=== PATIENT | female | born 1990 | race American Indian/Alaskan Native ===

== ENCOUNTER 2018-07-03 15:03 | Outpatient (CLI) | payer MEDICAID | END 2018-07-03 18:37 | disposition home or self-care (01) | LOC: TRG 15:03 | CPT/HCPCS: 59025 ==

== ENCOUNTER 2018-07-15 08:37 | Inpatient (IN) | payer MEDICAID ==
[2018-07-15 09:49] LABS: Hematocrit 33.6 % (30.3-42.9); Hemoglobin 11.2 gm/dl (10.1-14.3); Mean Corpuscular HGB Conc 33 % (30-34); Mean Corpuscular Volume 90 fl (79-97); Platelet Count 202 K/mm3 (140-440); Red Blood Count 3.75 M/mm3 (3.65-5.03); Red Cell Distribution Width 15.5 % (13.2-15.2)
[2018-07-15] MEDS ORDERED: PITOCin/NS 30 UNIT/500ML 30 UNITS/500 ML BAG IV SCH ×2 (10:00)
[2018-07-15] MEDS ORDERED: LACTATED RINGERS 1,000 ML IV SCH (10:00)
[2018-07-15] MEDS ORDERED: PITOCin/NS 20 UNIT/1000ML DRIP 20 UNITS/1,000 ML BAG IV SCH (10:00)
[2018-07-15] MEDS ORDERED: MINERAL OIL PO PRN (10:00)
[2018-07-15] MEDS ORDERED: XYLOCAINE 2% INFILTRATI NR (10:00)
[2018-07-15] MEDS ORDERED: BRETHINE SUB-Q PRN (10:30)
[2018-07-15] MEDS ORDERED: BRETHINE IVP PRN (10:30)
--- NOTE | 2018-07-15 11:00 | Ultrasound Report ---
ULTRASOUND OB LIMITED History: Confirm position Technique: Transabdominal ultrasound with Doppler interrogation. Gestation: Single Position: Cephalic Heart Rate: 146 BPM
[2018-07-15] MEDS ORDERED: AMPICILLIN/NS 2 GM/100 ML 2 GM/100 ML BAG IV ONE (12:56)
[2018-07-15] MEDS: AMPICILLIN/NS 1 GM/50 ML 1 GM/50 ML BAG IV SCH (17:57)
[2018-07-15] MEDS ORDERED: NARCAN 2 MG/2 ML IV PRN (18:13)
--- NOTE | 2018-07-15 18:15 | Anesthesia Day of Surgery ---
Anesthesia Day of Surgery - Day of Surgery Patient Examined: Yes Patient H&P Reviewed: Yes Patient is NPO: Yes Beta Blockers: No Cardiac Clearance: No Pulmonary Clearance: No Luis Felipe's Test: N/A
--- NOTE | 2018-07-15 18:15 | Anesthesia Consultation ---
Anesthesia Consult and Med Hx - Airway Anesthetic Teeth Evaluation: Good ROM Head & Neck: Adequate Mental/Hyoid Distance: Adequate Mallampati Class: Class I Intubation Access Assessment: Good - Pulmonary Exam CTA: Yes - Cardiac Exam Cardiac Exam: RRR - Pre-Operative Health Status ASA Pre-Surgery Classification: ASA2 Proposed Anesthetic Plan: Epidural - Pulmonary Hx Asthma: No - Cardiovascular System Hx Hypertension: No - Central Nervous System Hx Seizures: No Hx Psychiatric Problems: No - Endocrine Hx Renal Disease: No Hx Hypothyroidism: No Hx Hyperthyroidism: No - Hematic Hx Anemia: No Hx Sickle Cell Disease: No - Other Systems Hx Alcohol Use: No
[2018-07-15] MEDS ORDERED: LIDOCAINE 1.5%/EPI 1:200,000 INFILTRATI ONE (18:18)
[2018-07-15] MEDS ORDERED: MARCAINE 0.25% INFILTRATI ONE (18:18)
[2018-07-15] MEDS ORDERED: fentaNYL-BUPIV 2 MCG/ML-0.125% 200 MCG/100 ML BAG EPIDURAL SCH (19:00)
--- NOTE | 2018-07-15 22:02 | History and Physical Report ---
History of Present Illness Date of examination: 07/15/18 Date of admission: 07/15/18 08:37 Chief complaint: I'm here for my induction History of present illness: Patient is a 27 year old at 39.3 with EDC 07/20/18, who presents for possible external version followed by induction. Patient was last seen in the office last week and was transverse. She was scheduled today for version if needed followed by induction. However, when an ultrasound was performed on today, she was found to be vertex. Will proceed with induction of labor. Past History Past Medical History: no pertinent history Past Surgical History: no surgical history Social history: - Obstetrical History Expected Date of Delivery: 07/20/18 Actual Gestation: 39 Week(s) 2 Day(s) : 4 Para: 2 Number of Living Children: 2 Medications and Allergies Allergies Allergy/AdvReac Type Severity Reaction Status Date / Time No Known Allergies Allergy Verified 07/15/18 09:54 Home Medications Medication Instructions Recorded Confirmed Last Taken Type No Known Home Medications [No 07/15/18 07/15/18 Unknown History Reported Home Medications] Active Meds: Active Medications Ephedrine Sulfate (Ephedrine Sulfate) 10 mg IV Q2M PRN PRN Reason: Hypotension Ephedrine Sulfate (Ephedrine Sulfate) 10 mg IV Q2M PRN PRN Reason: Hypotension Lactated Ringer's (Lactated Ringers) 1,000 mls @ 125 mls/hr IV DIRECT USAMA Last Admin: 07/15/18 13:01 Dose: 125 mls/hr Documented by: Oxytocin/Sodium Chloride (Pitocin/Ns 20 Unit/1000ml Drip) 20 units in 1,000 mls @ 125 mls/hr IV DIRECT USAMA Oxytocin/Sodium Chloride (Pitocin/Ns 30 Unit/500ml) 30 units in 500 mls @ 1 mls/hr IV TITR USAMA; Protocol Last Titration: 07/15/18 15:11 Dose: 16 mls/hr Documented by: Oxytocin/Sodium Chloride (Pitocin/Ns 30 Unit/500ml) 30 units in 500 mls @ 4 m ls/hr IV TITR USAMA; Protocol Ampicillin Sodium (Ampicillin/Ns 1 Gm/50 Ml) 1 gm in 50 mls @ 100 mls/hr IV Q4HR USAMA; Protocol Last Admin: 07/15/18 17:57 Dose: 100 mls/hr Documented by: Fentanyl/Bupivacaine/Sodium Chlor (Fentanyl-Bupiv 2 Mcg/Ml-0.125%) 200 mcg in 100 mls @ 12 mls/hr EPIDURAL TITR USAMA; Protocol Last Admin: 07/15/18 18:48 Dose: 12 mls/hr Documented by: Lidocaine (Xylocaine 2%) 20 ml INFILTRATI ONCE NR Stop: 07/16/18 09:59 Mineral Oil (Mineral Oil) 30 ml PO QHS PRN PRN Reason: Constipation Naloxone HCl (Narcan 2 Mg/2 Ml) 0.2 mg IV Q5M PRN PRN Reason: Respiratory sedation Terbutaline Sulfate (Brethine) 0.25 mg SUB-Q ONCE PRN PRN Reason: Hyperstimulation/Hypertonicity Terbutaline Sulfate (Brethine) 0.25 mg IVP ONCE PRN PRN Reason: Hyperstimulation/Hypertonicity Review of Systems All systems: negative Breasts: deferred Genitourinary: leakage of fluid, contractions - Vital Signs Vital signs: Vital Signs Temp 97.6 F 07/15/18 09:03 Temp Pulse Resp BP Pulse Ox 97.0 F L 92 H 16 107/67 96 07/15/18 13:38 07/15/18 21:52 07/15/18 19:33 07/15/18 21:48 07/15/18 21:52 - Physical Exam Breasts: Cardiovascular: Regular rate, Normal S1, Normal S2 Lungs: Positive: Clear to auscultation, Normal air movement Abdomen: Positive: normal appearance, soft, normal bowel sounds. Negative: distention, tenderness Genitourinary (Female): Positive: normal external genitalia, normal perenium Vulva: both: normal Vagina: Positive: normal moisture. Negative: discharge Cervix: Negative: lesion, discharge Uterus: Positive: normal size, normal contour Adnexa: both: normal Anus/Rectum: Positive: normal perianal skin, heme negative. Negative: rectal mass, hemorrhoids Extremities: Deep Tendon Reflex Grade: Normal +2 - Obstetrical Cervical Dilatation: 4 Cervical Effacement Percentage: 70 station: -2 Uterine Contraction Pattern: Regular Uterine Tone Measurement Phase: Contraction Uterine Contraction Intensity: Moderate Results Result Diagrams: 07/15/18 09:30 Abnormal lab results 07/15/18 Range/Units 09:30 RDW 15.5 H (13.2-15.2) % All other labs normal. Assessment and Plan IUP at 39.2 weeks here for induction of labor. Admit for management. Anticipate .
[2018-07-15] MEDS ORDERED: XYLOCAINE MPF 2% ONE (23:53)
[2018-07-16] MEDS ORDERED: SENSORCAINE/DEXTR 0.75-8.25% INFILTRATI ONE (00:13)
[2018-07-16] MEDS ORDERED: LIDOCAINE 1.5%/EPI 1:200,000 INFILTRATI ONE (00:13)
[2018-07-16] MEDS ORDERED: MARCAINE 0.5% INFILTRATI ONE (00:13)
[2018-07-16] MEDS: AMPICILLIN/NS 1 GM/50 ML 1 GM/50 ML BAG IV SCH (00:37)
--- NOTE | 2018-07-16 01:25 | Procedure Note ---
OB Delivery Note - Delivery Date of Delivery: 07/16/18 Surgeon: ABHISHEK HUDDLESTON Estimated blood loss: 200cc - Vaginal Delivery presentation: vertex Delivery position: OA Intrapartum events: none Delivery induction: cervidil Delivery augmentation: rupture of membranes Delivery monitor: external FHT, external uterine Route of delivery: Delivery placenta: spontaneous Delivery cord: nuchal cord, 3 umbilical vessels Episiotomy: none Delivery laceration: none Anesthesia: epidural Delivery comments: Viable female delivered over intact perineum at 0052 with loose nuchal cord easily reduced on the perineum. Weight 8 pounds 6 ounces apgars 8,9. Infant placed on maternal abdomen. Cord clamped and cut when done pulsating. Placenta delivered spontaneously and intact with 3vc. No lacerations. Patient tolerated procedure well. - Infant A at 1 minute: 8 at 5 minutes: 9 Infant Gender: Female (3806 grams)
[2018-07-16] MEDS ORDERED: ZOFRAN IV ONE (01:43)
[2018-07-16] MEDS ORDERED: BENADRYL PO PRN (03:22)
[2018-07-16] MEDS ORDERED: PHENERGAN PR PRN (03:22)
[2018-07-16] MEDS ORDERED: TYLENOL PO PRN (03:22)
[2018-07-16] MEDS ORDERED: PHENERGAN PO PRN (03:22)
[2018-07-16] MEDS ORDERED: DULCOLAX PR PRN (03:22)
[2018-07-16] MEDS ORDERED: ZOFRAN IV PRN (03:22)
[2018-07-16] MEDS ORDERED: MILK OF MAGNESIA PO PRN (03:22)
[2018-07-16] MEDS ORDERED: TUCKS PAD TP PRN (03:22)
[2018-07-16] MEDS ORDERED: SODIUM CHLORIDE FLUSH SYRINGE 10 ML IV NR (03:22)
[2018-07-16] MEDS ORDERED: LANSINOH TP PRN (03:22)
[2018-07-16] MEDS: IBUPROFEN PO SCH ×3 (04:17→17:33)
[2018-07-16] MEDS: NORCO 5/325 PO PRN ×3 (04:17→21:38)
[2018-07-16] MEDS: COLACE PO SCH ×2 (10:22→21:39)
[2018-07-16] MEDS: PRENATAL VITAMIN PO SCH (10:22)
[2018-07-16 13:48] LABS: Hematocrit 28.8 % (30.3-42.9); Hemoglobin 9.6 gm/dl (10.1-14.3)
[2018-07-17] MEDS: IBUPROFEN PO SCH ×2 (00:30→06:14)
--- NOTE | 2018-07-17 09:59 | Progress Note ---
Assessment and Plan PPD 1 s/p . Doing well. Plan for discharge on today Subjective - Subjective Date of service: 07/17/18 Interval history: Patient is a 27 year old at 39.3 with EDC 07/20/18, who presents for possible external version followed by induction. Patient was last seen in the office last week and was transverse. She was scheduled today for version if needed followed by induction. However, when an ultrasound was performed on today, she was found to be vertex. Will proceed with induction of labor. Patient reports: appetite normal, voiding normally, pain well controlled, ambulating normally [place]: doing well Objective - Vital Signs Latest vital signs: Vital Signs Temp Pulse Resp BP Pulse Ox 07/17/18 06:14 18 07/17/18 01:30 18 07/17/18 00:45 98.3 F 79 20 93/53 97 07/17/18 00:30 18 07/16/18 21:38 18 07/16/18 15:50 97.9 F 80 18 99/55 07/16/18 12:16 98.2 F 94 H 18 102/57 Intake and Output 07/16/18 07/17/18 07/17/18 22:59 06:59 14:59 Intake Total 360 480 Output Total 600 Balance -240 480 Intake: Oral 360 480 Output: Urine 600 Void 600 Other: Total, Intake Amount 360 240 Total, Output Amount 600 # Voids Void 1 - Exam Breasts: Present: deferred Lungs: Present: Clear to auscultation, Normal air movement Abdomen: Present: normal appearance, normal bowel sounds Vulva: both: normal Uterus: Present: normal, firm, fundal height below umbilicus Extremities: Present: normal - Labs Labs: Abnormal lab results 07/16/18 Range/Units 13:25 Hgb 9.6 L (10.1-14.3) gm/dl Hct 28.8 L (30.3-42.9) %
--- NOTE | 2018-07-17 10:01 | Discharge Summary ---
Providers - Providers Date of Admission: 07/15/18 08:37 Date of discharge: 07/17/18 Attending physician: ABHISHEK HUDDLESTON Primary care physician: ABHISHEK HUDDLESTON Hospitalization Reason for admission: induction of labor Delivery: Episiotomy: none Laceration: none Discharge diagnosis: IUP at term delivered baby: female Condition at discharge: Good Disposition: DC-01 TO HOME OR SELFCARE Plan - Discharge Medications Prescriptions: HYDROcodone/ACETAMINOPHEN [[place] 5-325 Tablet] 1 each PO Q6H #15 tablet Ibuprofen [Motrin] 800 mg PO Q8HR PRN #40 tablet PRN Reason: Pain, Mild (1-3) - Provider Discharge Summary Activity: routine, no sex for 6 weeks, no heavy lifting 4 weeks, no strenuous exercise Diet: routine Instructions: routine Additional instructions: [] Smoking cessation referral if applicable(refer to patient education folder for contact #) [] Refer to [facility]'s [facility] Booklet Call your doctor immediately for: * Fever > 100.5 * Heavy vaginal bleeding ( >1 pad per hour) * Severe persistent headache * Shortness of breath * Reddened, hot, painful area to leg or breast * Drainage or odor from incision. * Keep incision clean and dry at all times and follow doctor's instructions regarding bathing/showering - Follow up plan Follow up: ABHISHEK HUDDLESTON MD [Primary Care Provider] - 6 Weeks
[2018-07-17] MEDS: PRENATAL VITAMIN PO SCH (10:51)
[2018-07-17] MEDS: COLACE PO SCH (10:51)
[2018-07-17 14:51] VITALS: BP 106/65
== END 2018-07-17 13:10 | disposition home or self-care (01) | DRG 775 ==
LOC: LD 08:37 → OB 07-16 02:53
PROVIDERS: ADMIT Obstetrics & Gynecology; ATTEND Obstetrics & Gynecology
PROC: 10E0XZZ Delivery of Products of Conception, External Approach (ICD-10-PCS; principal; 2018-07-16)
PROC: 3E0P7VZ Introduction of Hormone into Female Reproductive, Via Natural or Artificial Opening (ICD-10-PCS; 2018-07-16)
PROC: 3E0R3BZ Introduction of Anesthetic Agent into Spinal Canal, Percutaneous Approach (ICD-10-PCS; 2018-07-16)
PROC: 00HU33Z Insertion of Infusion Device into Spinal Canal, Percutaneous Approach (ICD-10-PCS; 2018-07-16)
DX: O69.1XX0 Labor and delivery complicated by cord around neck, with compression, not applicable or unspecified (principal); Z3A.39 39 weeks gestation of pregnancy; Z37.0 Single live birth
CPT/HCPCS: 36415; 76815; 85014; 85018; 85027; 86592; 86850; 86900; 86901; G0378; J0290; J2405; J2590; J7120